=== PATIENT | female | born 1950 | race American Indian/Alaskan Native ===

== ENCOUNTER 2021-11-21 04:47 | Inpatient (IN) | payer MEDICARE, OTHER ==
--- NOTE | 2021-11-21 04:51 | Event Note ---
Date: 11/21/21 Verbal report received from emergency medical services. EMS documentation not available at time of chart dictation Medical screening examination note: 71-year-old female, with an EMS described past medical history of "weak heart", brought to the hospital by emergency medical services with an EMS articulated complaint of shortness of breath. The patient denies physical pain. EMS reports that the patient had wheezing, and was given magnesium, and possibly steroids and nebulizers. The patient denies physical pain. She is awake and al ert, protecting airway and moving 4 extremities. She is found to have JVD. She appears to be mildly anxious Obtain vital signs, EKG, chest x-ray, appropriate laboratory studies, and a detailed history and physical will be performed by myself or the oncoming provider
[2021-11-21 05:11] LABS: Basophils # (Auto) 0.3 K/mm3 (0.0-0.1); Basophils % (Auto) 2.1 % (0.0-1.8); Eosinophils # (Auto) 0.2 K/mm3 (0.0-0.4); Eosinophils % (Auto) 1.3 % (0.0-4.3); Hematocrit 37.3 % (30.3-42.9); Hemoglobin 11.6 gm/dl (10.1-14.3); Lymphocytes # (Auto) 2.7 K/mm3 (1.2-5.4); Lymphocytes % (Auto) 22.6 % (13.4-35.0); Mean Corpuscular HGB Conc 31 % (30-34); Mean Corpuscular Volume 90 fl (79-97); Monocytes % (Auto) 8.1 % (0.0-7.3); Platelet Count 182 K/mm3 (140-440); Red Blood Count 4.14 M/mm3 (3.65-5.03); Red Cell Distribution Width 15.9 % (13.2-15.2)
[2021-11-21 05:22] LABS: INR 0.85 (0.87-1.13)
[2021-11-21 05:27] LABS: Alanine Aminotransferase 8 units/L (7-56); BUN/Creatinine Ratio 22; Blood Urea Nitrogen 24 mg/dL (7-17); Calcium 8.8 mg/dL (8.4-10.2); Hemolysis Index 21
--- NOTE | 2021-11-21 05:37 | XRay Report ---
CHEST 1 VIEW 11/21/2021 5:18 AM INDICATION / CLINICAL INFORMATION: Dyspnea. COMPARISON: None available. FINDINGS: SUPPORT DEVICES: None. HEART / MEDIASTINUM: The cardiac silhouette appears enlarged even for AP technique. LUNGS / PLEURA: Mild reticular interstitial thickening with Negar B-lines most consistent with mild interstitial edema. No significant pleural effusion or evidence for pneumonia. No pneumothorax. ADDITIONAL FINDINGS: None IMPRESSION: 1. Mild diffuse interstitial pulmonary edema. Signer Name: Pop Kelly MD Signed: 11/21/2021 5:33 AM Workstation Name: [employer]
--- NOTE | 2021-11-21 07:17 | Emergency Department Report ---
ED Shortness of Breath HPI - General Chief Complaint: Dyspnea/Respdistress Stated Complaint: DIFFICULTY BREATHING Time Seen by Provider: 11/21/21 06:15 Source: EMS, old records reviewed (No previous medical record for review) Mode of arrival: Stretcher Limitations: No Limitations - History of Present Illness Initial Comments: 71-year-old female with a past medical history of evn-jfsaoyr-[id number] diabetes, hypertension, elevated cholesterol, and a "weak heart" presents to the hospital with complaints of shortness of breath that is progressively worsened over the last 3 to 4 days. Patient woke up from her sleep with significant shortness of breath and chest tightness. As per medical record EMS heard wheezing on their examination initiated Solu-Medrol 125, magnesium 2 g, epinephrine, and nebulizers. Patient reports improvement of symptoms upon arrival. Saturation 93% on 2 L. Patient is a longtime smoker but denies history of asthma or COPD. Last week she was admitted to [facility] x5 days with discharge on November 15 for hypoglycemia. She states she received inpatient cardiac work-up including cardiac cath at that time. She was scheduled to follow-up with the core shaper sides today. She cannot recall any of her medications. No previous medical record available for review. - Related Data Allergies Allergy/AdvReac Type Severity Reaction Status Date / Time lisinopril Allergy Unknown Verified 11/21/21 07:28 ED Review of Systems ROS: Stated complaint: DIFFICULTY BREATHING Other details as noted in HPI Comment: All other systems reviewed and negative ED Past Medical Hx - Social History Smoking Status: Never Smoker ED Physical Exam - General Limitations: No Limitations - Other Other exam information: General: No acute distress Head: Atraumatic Eyes: normal appearance ENT: Moist mucous membranes Neck: Normal appearance, no midline tenderness Chest: Clear to auscultation bilaterally, no wheezes or crackles auscultated on examination, no tachypnea CV: Regular rate and rhythm Abdomen: Soft, normal bowel sounds, nontender, nondistended, no rebound or guarding Back: Normal inspection Extremity: Normal inspection, full range of motion, no calf tenderness or leg edema Neuro: Alert O x 3, no facial asymmetry, speech clear, no gross motor sensory deficit Psych: Appropriate behavior Skin: No rash ED Course Vital Signs 11/21/21 11/21/21 11/21/21 04:52 05:00 05:16 Temperature Pulse Rate 59 L Respiratory 17 Rate Blood Pressure 151/70 Blood Pressure [Left] O2 Sat by Pulse 91 92 90 Oximetry 11/21/21 11/21/21 11/21/21 05:30 05:31 05:46 Temperature 98.1 F Pulse Rate 73 72 79 Respiratory 22 21 Rate Blood Pressure 151/70 158/74 151/70 Blood Pressure [Left] O2 Sat by Pulse 89 100 89 Oximetry 11/21/21 11/21/21 11/21/21 06:00 06:16 07:12 Temperature Pulse Rate 72 65 Respiratory 13 16 Rate Blood Pressure 151/70 151/70 Blood Pressure [Left] O2 Sat by Pulse 91 92 98 Oximetry 11/21/21 09:42 Temperature Pulse Rate 69 Respiratory 16 Rate Blood Pressure Blood Pressure 133/67 [Left] O2 Sat by Pulse 95 Oximetry - Consultations Consultation #1: 11/21/21 08:46 Case discussed with Jd physician bus assistant for [facility] who was able to access [facility] medical records. Patient had a cardiac cath that showed nonobstructive disease and EF of 30 to 35%. Patient was worked up by [facility] and referred to follow-up with Dr. Melton as an outpatient. [facility] will be consulted. Case discussed with Dr. Kassandra king who states that if patient belongs to [facility] then ordered the consult and they will see the patient ED Medical Decision Making - Lab Data Result diagrams: 11/21/21 04:49 11/21/21 04:49 Lab Results 11/21/21 11/21/21 11/21/21 Range/Units 04:49 04:49 04:49 WBC 12.1 H (4.5-11.0) K/mm3 RBC 4.14 (3.65-5.03) M/mm3 Hgb 11.6 (10.1-14.3) gm/dl Hct 37.3 (30.3-42.9) % MCV 90 (79-97) fl MCH 28 (28-32) pg MCHC 31 (30-34) % RDW 15.9 H (13.2-15.2) % Plt Count 182 (140-440) K/mm3 Lymph % (Auto) 22.6 (13.4-35.0) % [place] % (Auto) 8.1 H (0.0-7.3) % Eos % (Auto) 1.3 (0.0-4.3) % Baso % (Auto) 2.1 H (0.0-1.8) % Lymph # (Auto) 2.7 (1.2-5.4) K/mm3 [place] # (Auto) 1.0 H (0.0-0.8) K/mm3 Eos # (Auto) 0.2 (0.0-0.4) K/mm3 Baso # (Auto) 0.3 H (0.0-0.1) K/mm3 Seg Neutrophils % 65.9 (40.0-70.0) % Seg Neutrophils # 8.0 H (1.8-7.7) K/mm3 PT 12.8 (12.2-14.9) Sec. INR 0.85 L (0.87-1.13) ABG pH (7.350-7.450) pH Units ABG pCO2 mm Hg ABG pO2 (80.0-90.0) mm Hg ABG HCO3 (20.0-26.0) mmol/L ABG O2 Saturation (95.0-99.0) % ABG O2 Content (0.0-44) ABG Base Excess (-2.0-3.0) mmol/L ABG Hemoglobin (12.0-16.0) gm/dl ABG Carboxyhemoglobin (0.0-5.0) % ABG Methemoglobin (0.0-1.5) % Oxyhemoglobin (95.0-99.0) % FiO2 % Sodium 143 (137-145) mmol/L Potassium 4.2 (3.6-5.0) mmol/L Chloride 111.4 H (98-107) mmol/L Carbon Dioxide 21 L (22-30) mmol/L Anion Gap 15 mmol/L BUN 24 H (7-17) mg/dL Creatinine 1.1 (0.6-1.2) mg/dL Estimated GFR 49 ml/min BUN/Creatinine Ratio 22 % Glucose 135 H (65-100) mg/dL Calcium 8.8 (8.4-10.2) mg/dL Magnesium 2.60 H (1.7-2.3) mg/dL Total Bilirubin 0.40 (0.1-1.2) mg/dL AST 15 (5-40) units/L ALT 8 (7-56) units/L Alkaline Phosphatase 124 (35-129) units/L Total Creatine Kinase 64 (30-135) units/L Troponin T < 0.010 (0.00-0.029) ng/mL NT-Pro-B Natriuret Pep 4743 H (0-900) pg/mL Total Protein 6.8 (6.3-8.2) g/dL Albumin 4.0 (3.9-5) g/dL Albumin/Globulin Ratio 1.4 % TSH (0.270-4.200) mlU/mL 11/21/21 11/21/21 Range/Units 04:49 06:48 WBC (4.5-11.0) K/mm3 RBC (3.65-5.03) M/mm3 Hgb (10.1-14.3) gm/dl Hct (30.3-42.9) % MCV (79-97) fl MCH (28-32) pg MCHC (30-34) % RDW (13.2-15.2) % Plt Count (140-440) K/mm3 Lymph % (Auto) (13.4-35.0) % [place] % (Auto) (0.0-7.3) % Eos % (Auto) (0.0-4.3) % Baso % (Auto) (0.0-1.8) % Lymph # (Auto) (1.2-5.4) K/mm3 [place] # (Auto) (0.0-0.8) K/mm3 Eos # (Auto) (0.0-0.4) K/mm3 Baso # (Auto) (0.0-0.1) K/mm3 Seg Neutrophils % (40.0-70.0) % Seg Neutrophils # (1.8-7.7) K/mm3 PT (12.2-14.9) Sec. INR (0.87-1.13) ABG pH 7.314 L (7.350-7.450) pH Units ABG pCO2 40.4 mm Hg ABG pO2 57.2 L (80.0-90.0) mm Hg ABG HCO3 20.0 (20.0-26.0) mmol/L ABG O2 Saturation 88.8 L (95.0-99.0) % ABG O2 Content 12.9 (0.0-44) ABG Base Excess -5.7 L (-2.0-3.0) mmol/L ABG Hemoglobin 10.8 L (12.0-16.0) gm/dl ABG Carboxyhemoglobin 4.4 (0.0-5.0) % ABG Methemoglobin 0.4 (0.0-1.5) % Oxyhemoglobin 84.5 L (95.0-99.0) % FiO2 21 % Sodium (137-145) mmol/L Potassium (3.6-5.0) mmol/L Chloride (98-107) mmol/L Carbon Dioxide (22-30) mmol/L Anion Gap mmol/L BUN (7-17) mg/dL Creatinine (0.6-1.2) mg/dL Estimated GFR ml/min BUN/Creatinine Ratio % Glucose (65-100) mg/dL Calcium (8.4-10.2) mg/dL Magnesium (1.7-2.3) mg/dL Total Bilirubin (0.1-1.2) mg/dL AST (5-40) units/L ALT (7-56) units/L Alkaline Phosphatase (35-129) units/L Total Creatine Kinase (30-135) units/L Troponin T (0.00-0.029) ng/mL NT-Pro-B Natriuret Pep (0-900) pg/mL Total Protein (6.3-8.2) g/dL Albumin (3.9-5) g/dL Albumin/Globulin Ratio % TSH 1.300 (0.270-4.200) mlU/mL - EKG Data -: EKG Interpreted by Me (Left bundle branch block) EKG shows normal: sinus rhythm Rate: normal - EKG Data When compared to previous EKG there are: previous EKG unavailable - Radiology Data Radiology results: report reviewed CHEST 1 VIEW 11/21/2021 5:18 AM INDICATION / CLINICAL INFORMATION: Dyspnea. COMPARISON: None available. FINDINGS: SUPPORT DEVICES: None. HEART / MEDIASTINUM: The cardiac silhouette appears enlarged even for AP technique. LUNGS / PLEURA: Mild reticular interstitial thickening with Negar B-lines most consistent with mild interstitial edema. No significant pleural effusion or evidence for pneumonia. No pneumothorax. ADDITIONAL FINDINGS: None IMPRESSION: 1. Mild diffuse interstitial pulmonary edema. - Medical Decision Making 71-year female presents to the hospital shortness of breath. Differential at time of disposition includes CHF versus COPD/reactive airway disease. Patient responded well to treatment for bronchospasm however chest x-ray shows findings of CHF with elevated BNP. EKG reveals a left bundle branch block without previous for comparison. Patient denies chest pain after bronchospasm treatment. Initial troponin negative. Case discussed with hospitalist for admission. ABG on room air requested and pending at time of disposition abg on room air shows acute respiratory failure with hypoxia. Case discussed with cardiology. Patient is a patient of [facility] Lasix 40 mg IV ordered Critical Care Time: Yes Critical care time in (mins) excluding proc time.: 35 Critical care attestation.: If time is entered above; I have spent that time in minutes in the direct care of this critically ill patient, excluding procedure time. Critical Care Time: 35 minutes of critical care time. Patient required multiple reassessments, supplemental oxygenation titrate for acute respiratory failure, ABG interpretation, consultations, IV medications, continuous cardiac monitoring. Patient to be admitted to the hospitalist service for further treatment ED Disposition Clinical Impression: Dyspnea, CHF exacerbation, Acute respiratory failure with hypoxia Disposition: ADMITTED INPATIENT Is pt being admited?: Yes Condition: Stable Time of Disposition: 07:18 (Andree)
[2021-11-21] MEDS ORDERED: ONDANSETRON 4 MG/2 ML INJ IV PRN ×2 (07:22→13:00)
[2021-11-21] MEDS ORDERED: ACETAMINOPHEN 325 MG TAB PO PRN ×2 (07:22→13:00)
[2021-11-21] MEDS ORDERED: MORPHINE 2 MG/1 ML INJ IV PRN (07:23)
[2021-11-21 07:25] LABS: ABG Base Excess -5.7 mmol/L (-2.0-3.0); ABG Methemoglobin 0.4 % (0.0-1.5); ABG Oxygen Saturation 88.8 % (95.0-99.0); ABG PCO2 40.4 mm Hg; ABG PH 7.314 pH Units (7.350-7.450); ABG PO2 57.2 mm Hg (80.0-90.0)
[2021-11-21] MEDS ORDERED: FUROSEMIDE 40 MG/4 ML INJ IV ONE (08:48)
--- NOTE | 2021-11-21 12:27 | History and Physical Report ---
History of Present Illness Date of examination: 11/21/21 Date of admission: 11/21/21 07:22 Chief complaint: I could not breathe History of present illness: Patient is a 71-year-old female with history of type 2 diabetes, hypertension, hyperlipidemia and CHF who presented with acute onset shortness of breath that woke her out of her sleep. She also reports chest pressure and cough. There were no alleviating or worsening factors. She did attempt to use her brothers albuterol inhaler with no improvement. Chest pain resolved while in the ED. She reports compliance with her heart failure medications at home. She quit smoking 1 week ago after being hospitalized for CHF exacerbation. She denies lightheadedness, dizziness, palpitations, and peripheral edema. Chest x-ray was reviewed and showed pulmonary edema. NT proBNP was 4743. Patient was admitted for acute CHF exacerbation and cardiology was consulted. Past History Past Medical History: cancer (Breast), diabetes, heart failure, hypertension Past Surgical History: mastectomy (R) Social history: lives with family, smoking Family history: no significant family history Medications and Allergies Allergies Allergy/AdvReac Type Severity Reaction Status Date / Time lisinopril Allergy Unknown Verified 11/21/21 07:28 Home Medications Medication Instructions Recorded Confirmed Last Taken Type Aspirin [Adult Aspirin] 81 mg PO DAILY 11/21/21 11/21/21 Unknown History AtorvaSTATin [Lipitor] 40 mg PO QHS 11/21/21 11/21/21 Unknown History Glimepiride 1 mg PO DAILY 11/21/21 11/21/21 Unknown History Metformin HCl [metFORMIN] 1,000 mg PO BID 11/21/21 11/21/21 Unknown History Furosemide [Lasix] 20 mg PO QDAY 30 Days #30 tablet 11/23/21 Unknown Rx Losartan [Cozaar] 50 mg PO QDAY 30 Days #30 tablet 11/23/21 Unknown Rx Spironolactone [Aldactone] 25 mg PO QDAY 30 Days #30 tablet 11/23/21 Unknown Rx carvediloL [Coreg] 3.125 mg PO BID 30 Days #60 tablet 11/23/21 Unknown Rx Active Meds: Active Medications Acetaminophen (Acetaminophen 325 Mg Tab) 650 mg PO Q4H PRN PRN Reason: Pain MILD(1-3)/Fever >100.5/SANCHEZ Morphine Sulfate (Morphine 4 Mg/1 Ml Inj) 4 mg IV Q4H PRN PRN Reason: Pain , Severe (7-10) Ondansetron HCl (Ondansetron 4 Mg/2 Ml Inj) 4 mg IV Q8H PRN PRN Reason: Nausea And Vomiting Oxycodone/Acetaminophen (Oxycodone /Acetaminophen 5-325mg Tab) 1 tab PO Q6H PRN PRN Reason: Pain, Moderate (4-6) Sodium Chloride (Sodium Chloride 0.9% 10 Ml Flush Syringe) 10 ml IV BID [facility] Last Admin: 11/21/21 09:34 Dose: 10 ml Sodium Chloride (Sodium Chloride 0.9% 10 Ml Flush Syringe) 10 ml IV PRN PRN PRN Reason: LINE FLUSH Stop: 12/07/21 08:59 Sodium Chloride (Sodium Chloride 0.9% 10 Ml Flush Syringe) 10 ml IV BID [facility] Sodium Chloride (Sodium Chloride 0.9% 10 Ml Flush Syringe) 10 ml IV PRN PRN PRN Reason: LINE FLUSH Review of Systems Constitutional: no weight loss, no weight gain, no fever, no chills, no sweats, no fatigue, no poor appetite, no daytime sleepiness Ears, nose, mouth and throat: deferred Breasts: deferred Cardiovascular: chest pain, shortness of breath, high blood pressure, no palpitations, no rapid/irregular heart beat, no edema, no lightheadedness, no paroxysmal nocturnal dyspnea Respiratory: cough, no cough with sputum, no congestion, no wheezing, no home oxygen Gastrointestinal: no abdominal pain, no nausea, no vomiting, no diarrhea, no change in bowel habits Musculoskeletal: no neck stiffness, no low back pain, no muscle weakness Integumentary: deferred Neurological: no numbness, no tingling, no syncope, no headaches, no loss of vision Endocrine: no polyphagia, no polydipsia, no polyuria, no low blood sugars Exam - Physical Exam Narrative exam: GENERAL: Well-developed well-nourished. In no acute distress. HEENT: NC in place @2LPM NECK: Supple. CHEST/LUNGS: Mild crackles on posterior examination. HEART/CARDIOVASCULAR: RRR. No murmur, rubs or gallops appreciated. ABDOMEN: +BS. NT/ND. SKIN: No rashes noted. NEURO: No focal motor deficit. Follows all commands. MUSCULOSKELETAL: No joint effusion EXTREMITIES: No cyanosis, clubbing or edema. PSYCH: Cooperative. - Constitutional Vitals: Temp Pulse Resp BP Pulse Ox 98.1 F 69 16 133/67 95 11/21/21 05:31 11/21/21 09:42 11/21/21 09:42 11/21/21 09:42 11/21/21 09:42 HEART Score - HEART Score Troponin: Troponin T < 0.010 ng/mL (0.00-0.029) 11/21/21 04:49 Results - Labs CBC & Chem 7: 11/22/21 05:49 11/22/21 05:49 Labs: Laboratory Last Values WBC 12.1 K/mm3 (4.5-11.0) H 11/21/21 04:49 RBC 4.14 M/mm3 (3.65-5.03) 11/21/21 04:49 Hgb 11.6 gm/dl (10.1-14.3) 11/21/21 04:49 Hct 37.3 % (30.3-42.9) 11/21/21 04:49 MCV 90 fl (79-97) 11/21/21 04:49 MCH 28 pg (28-32) 11/21/21 04:49 MCHC 31 % (30-34) 11/21/21 04:49 RDW 15.9 % (13.2-15.2) H 11/21/21 04:49 Plt Count 182 K/mm3 (140-440) 11/21/21 04:49 Lymph % (Auto) 22.6 % (13.4-35.0) 11/21/21 04:49 [place] % (Auto) 8.1 % (0.0-7.3) H 11/21/21 04:49 Eos % (Auto) 1.3 % (0.0-4.3) 11/21/21 04:49 Baso % (Auto) 2.1 % (0.0-1.8) H 11/21/21 04:49 Lymph # (Auto) 2.7 K/mm3 (1.2-5.4) 11/21/21 04:49 [place] # (Auto) 1.0 K/mm3 (0.0-0.8) H 11/21/21 04:49 Eos # (Auto) 0.2 K/mm3 (0.0-0.4) 11/21/21 04:49 Baso # (Auto) 0.3 K/mm3 (0.0-0.1) H 11/21/21 04:49 Seg Neutrophils % 65.9 % (40.0-70.0) 11/21/21 04:49 Seg Neutrophils # 8.0 K/mm3 (1.8-7.7) H 11/21/21 04:49 PT 12.8 Sec. (12.2-14.9) 11/21/21 04:49 INR 0.85 (0.87-1.13) L 11/21/21 04:49 ABG pH 7.314 pH Units (7.350-7.450) L 11/21/21 06:48 ABG pCO2 40.4 mm Hg 11/21/21 06:48 ABG pO2 57.2 mm Hg (80.0-90.0) L 11/21/21 06:48 ABG HCO3 20.0 mmol/L (20.0-26.0) 11/21/21 06:48 ABG O2 Saturation 88.8 % (95.0-99.0) L 11/21/21 06:48 ABG O2 Content 12.9 (0.0-44) 11/21/21 06:48 ABG Base Excess -5.7 mmol/L (-2.0-3.0) L 11/21/21 06:48 ABG Hemoglobin 10.8 gm/dl (12.0-16.0) L 11/21/21 06:48 ABG Carboxyhemoglobin 4.4 % (0.0-5.0) 11/21/21 06:48 ABG Methemoglobin 0.4 % (0.0-1.5) 11/21/21 06:48 Oxyhemoglobin 84.5 % (95.0-99.0) L 11/21/21 06:48 FiO2 21 % 11/21/21 06:48 Sodium 143 mmol/L (137-145) 11/21/21 04:49 Potassium 4.2 mmol/L (3.6-5.0) 11/21/21 04:49 Chloride 111.4 mmol/L (98-107) H 11/21/21 04:49 Carbon Dioxide 21 mmol/L (22-30) L 11/21/21 04:49 Anion Gap 15 mmol/L 11/21/21 04:49 BUN 24 mg/dL (7-17) H 11/21/21 04:49 Creatinine 1.1 mg/dL (0.6-1.2) 11/21/21 04:49 Estimated GFR 49 ml/min 11/21/21 04:49 BUN/Creatinine Ratio 22 % 11/21/21 04:49 Glucose 135 mg/dL (65-100) H 11/21/21 04:49 Calcium 8.8 mg/dL (8.4-10.2) 11/21/21 04:49 Magnesium 2.60 mg/dL (1.7-2.3) H 11/21/21 04:49 Total Bilirubin 0.40 mg/dL (0.1-1.2) 11/21/21 04:49 AST 15 units/L (5-40) 11/21/21 04:49 ALT 8 units/L (7-56) 11/21/21 04:49 Alkaline Phosphatase 124 units/L (35-129) 11/21/21 04:49 Total Creatine Kinase 64 units/L (30-135) 11/21/21 04:49 Troponin T < 0.010 ng/mL (0.00-0.029) 11/21/21 04:49 NT-Pro-B Natriuret Pep 4743 pg/mL (0-900) H 11/21/21 04:49 Total Protein 6.8 g/dL (6.3-8.2) 11/21/21 04:49 Albumin 4.0 g/dL (3.9-5) 11/21/21 04:49 Albumin/Globulin Ratio 1.4 % 11/21/21 04:49 TSH 1.300 mlU/mL (0.270-4.200) 11/21/21 04:49 - Imaging and Cardiology Chest x-ray: report reviewed, image reviewed Assessment and Plan Assessment and plan: #Acute on chronic systolic heart failure #Nonischemic cardiomyopathy #Takotsubo syndrome -IV Lasix, Aldactone, Coreg -patient not on ACEi/ARB due to angioedema in the past -Cardiology consulted, assistance appreciated #Hyperlipidemia -Continue statin #Hypertension -Continue goal-directed medical therapy for CHF #Type 2 diabetes mellitus -Patient taking metformin and glimepiride at home -We will start sliding scale insulin and accuchecks while in patient #tobacco dependence #Tobacco cessation counseling Smoking cessation counseling, supportive care, behavior change counseling, +15 minutes. -nicotine patch ordered #Advanced care planning -Disease education conducted, care plan discussed, diagnoses discussed, prognosis discussed, and patient acknowledges understanding with care plan -Time: +30 min Advance Directives: No VTE prophylaxis?: Chemical Plan of care discussed with patient/family: Yes
[2021-11-21] MEDS ORDERED: MORPHINE 4 MG/1 ML INJ IV PRN (13:00)
[2021-11-21] MEDS ORDERED: oxyCODONE /ACETAMINOPHEN 5-325MG TAB PO PRN (13:00)
--- NOTE | 2021-11-21 13:10 | Consultation ---
History of Present Illness Consult date: 11/21/21 Consult reason: shortness of breath History of present illness: This patient is a 71-year-old woman who was just hospitalized a week ago at [facility] for acute coronary syndrome. She went extensive cardiac evaluation including echocardiogram and cardiac catheterization. Cardiac catheterization revealed angiographically normal coronary arteries, and she was given a diagnosis of Takotsubo syndrome. She was discharged on appropriate medical therapy. She presents to this hospital now with shortness of breath which suddenly woke her up from sleep, there was no exertional chest pain, no palpitations and no syncope. Work-up so far in the hospital: EKG was a sinus rhythm with left bundle branch block. Chest x-ray revealed a moderate to severe cardiomegaly, with very mild bilateral interstitial edema. Past History Past Medical History: heart failure Medications and Allergies Allergies Allergy/AdvReac Type Severity Reaction Status Date / Time lisinopril Allergy Unknown Verified 11/21/21 07:28 Active Meds: Active Medications Acetaminophen (Acetaminophen 325 Mg Tab) 650 mg PO Q4H PRN PRN Reason: Pain MILD(1-3)/Fever >100.5/SANCHEZ Morphine Sulfate (Morphine 4 Mg/1 Ml Inj) 4 mg IV Q4H PRN PRN Reason: Pain , Severe (7-10) Ondansetron HCl (Ondansetron 4 Mg/2 Ml Inj) 4 mg IV Q8H PRN PRN Reason: Nausea And Vomiting Oxycodone/Acetaminophen (Oxycodone /Acetaminophen 5-325mg Tab) 1 tab PO Q6H PRN PRN Reason: Pain, Moderate (4-6) Sodium Chloride (Sodium Chloride 0.9% 10 Ml Flush Syringe) 10 ml IV BID [facility] Last Admin: 11/21/21 09:34 Dose: 10 ml Sodium Chloride (Sodium Chloride 0.9% 10 Ml Flush Syringe) 10 ml IV PRN PRN PRN Reason: LINE FLUSH Stop: 12/07/21 08:59 Review of Systems Cardiovascular: chest pain, orthopnea, shortness of breath, no palpitations, no rapid/irregular heart beat, no edema, no syncope, no lightheadedness Physical Examination Vital Signs Pulse Ox 91 11/21/21 04:52 General appearance: no acute distress HEENT: Positive: PERRL Neck: Positive: neck supple Cardiac: Positive: Reg Rate and Rhythm Lungs: Positive: Decreased Breath Sounds Neuro: Positive: Grossly Intact Abdomen: Positive: Soft Female genitourinary: deferred Skin: Positive: Clear Extremities: Absent: edema Results 11/21/21 04:49 11/21/21 04:49 Cardiac Enzymes 11/21/21 Range/Units 04:49 AST 15 (5-40) units/L Coagulation 11/21/21 Range/Units 04:49 PT 12.8 (12.2-14.9) Sec. INR 0.85 L (0.87-1.13) CBC 11/21/21 Range/Units 04:49 WBC 12.1 H (4.5-11.0) K/mm3 RBC 4.14 (3.65-5.03) M/mm3 Hgb 11.6 (10.1-14.3) gm/dl Hct 37.3 (30.3-42.9) % Plt Count 182 (140-440) K/mm3 Lymph # (Auto) 2.7 (1.2-5.4) K/mm3 [place] # (Auto) 1.0 H (0.0-0.8) K/mm3 Eos # (Auto) 0.2 (0.0-0.4) K/mm3 Baso # (Auto) 0.3 H (0.0-0.1) K/mm3 Comprehensive Metabolic Panel 11/21/21 Range/Units 04:49 Sodium 143 (137-145) mmol/L Potassium 4.2 (3.6-5.0) mmol/L Chloride 111.4 H (98-107) mmol/L Carbon Dioxide 21 L (22-30) mmol/L BUN 24 H (7-17) mg/dL Creatinine 1.1 (0.6-1.2) mg/dL Glucose 135 H (65-100) mg/dL Calcium 8.8 (8.4-10.2) mg/dL AST 15 (5-40) units/L ALT 8 (7-56) units/L Alkaline Phosphatase 124 (35-129) units/L Total Protein 6.8 (6.3-8.2) g/dL Albumin 4.0 (3.9-5) g/dL EKG interpretations - Telemetry EKG Rhythm: Sinus Rhythm (With left bundle branch block) Assessment and Plan - Patient Problems (1) Acute systolic heart failure Current Visit: Yes Status: Acute Plan to address problem: Patient has a recent diagnosis of nonischemic cardiomyopathy, Takotsubo syndrome, now admitted with acute shortness of breath with exacerbation of systolic heart failure. She states that she is compliant with her guideline directed medical therapy. Recommend IV diuretics, optimal medical therapy for underlying nonischemic cardiomyopathy.
[2021-11-21] MEDS: carvediloL 3.125 MG TAB PO SCH ×2 (16:41→22:30)
[2021-11-21] MEDS: LOSARTAN 50 MG TAB PO SCH (16:41)
[2021-11-21] MEDS: SPIRONOLACTONE 25 MG TAB PO SCH (17:44)
[2021-11-21] MEDS: FUROSEMIDE 40 MG/4 ML INJ IV SCH (18:47)
[2021-11-22] MEDS: FUROSEMIDE 40 MG/4 ML INJ IV SCH ×2 (06:08→18:48)
[2021-11-22 06:55] LABS: Basophils % (Auto) 0.2 % (0.0-1.8); Hemoglobin 10.9 gm/dl (10.1-14.3); Lymphocytes % (Auto) 10.7 % (13.4-35.0); Mean Corpuscular HGB Conc 33 % (30-34); Mean Corpuscular Volume 87 fl (79-97); Monocytes # (Auto) 0.7 K/mm3 (0.0-0.8); Monocytes % (Auto) 7.7 % (0.0-7.3); Platelet Count 181 K/mm3 (140-440); Red Cell Distribution Width 15.3 % (13.2-15.2)
[2021-11-22 07:14] LABS: Albumin 3.9 g/dL (3.9-5); Calcium 9.1 mg/dL (8.4-10.2)
[2021-11-22] MEDS: ASPIRIN EC 81 MG TAB PO SCH (09:18)
[2021-11-22] MEDS: NICOTINE 14 MG/24 HR PATCH TD SCH (09:18)
[2021-11-22] MEDS: carvediloL 3.125 MG TAB PO SCH ×2 (09:18→21:05)
[2021-11-22] MEDS: SPIRONOLACTONE 25 MG TAB PO SCH (09:18)
[2021-11-22] MEDS: LOSARTAN 50 MG TAB PO SCH (09:18)
--- NOTE | 2021-11-22 15:00 | Progress Note ---
Assessment and Plan - Patient Problems (1) Acute systolic heart failure Current Visit: Yes Status: Acute Plan to address problem: Patient has a recent diagnosis of nonischemic cardiomyopathy, Takotsubo syndrome, now admitted with acute shortness of breath with exacerbation of systolic heart failure. She states that she is compliant with her guideline directed medical therapy. Continue optimal medical therapy as previously outlined. Subjective Date of service: 11/22/21 Principal diagnosis: Cardiomyopathy, systolic heart failure Interval history: Patient is comfortable, no acute distress, no new cardiac events reported. On threat monitoring analyst, she has a sinus bradycardia at 55. Objective Vital Signs Temp Pulse Resp BP BP Pulse Ox 11/22/21 11:45 97.5 F L 47 L 22 111/54 100 11/22/21 09:00 98 11/22/21 05:30 97.7 F 51 L 18 135/67 100 11/21/21 22:30 51 L 140/64 11/21/21 22:15 98.5 F 11/21/21 22:12 51 L 20 140/64 99 11/21/21 22:00 99 11/21/21 21:26 20 98 11/21/21 20:01 61 20 142/65 97 11/21/21 19:30 98.2 F 73 18 145/46 99 11/21/21 18:01 58 L 18 176/70 98 11/21/21 16:41 134/65 11/21/21 16:40 132/62 - Physical Examination General: No Apparent Distress HEENT: Positive: PERRL Neck: Positive: neck supple Cardiac: Positive: Regular Rhythm Lungs: Positive: Decreased Breath Sounds Neuro: Positive: Grossly Intact Abdomen: Positive: Soft Skin: Positive: Clear Extremities: Absent: edema - Labs and Meds Cardiac Enzymes 11/22/21 Range/Units 05:49 AST 12 (5-40) units/L CBC 11/22/21 Range/Units 05:49 WBC 9.3 (4.5-11.0) K/mm3 RBC 3.80 (3.65-5.03) M/mm3 Hgb 10.9 (10.1-14.3) gm/dl Hct 33.0 (30.3-42.9) % Plt Count 181 (140-440) K/mm3 Lymph # (Auto) 1.0 L (1.2-5.4) K/mm3 [place] # (Auto) 0.7 (0.0-0.8) K/mm3 Eos # (Auto) 0.0 (0.0-0.4) K/mm3 Baso # (Auto) 0.0 (0.0-0.1) K/mm3 Comprehensive Metabolic Panel 11/22/21 Range/Units 05:49 Sodium 139 (137-145) mmol/L Potassium 4.3 (3.6-5.0) mmol/L Chloride 103.0 (98-107) mmol/L Carbon Dioxide 23 (22-30) mmol/L BUN 33 H (7-17) mg/dL Creatinine 1.2 (0.6-1.2) mg/dL Glucose 191 H (65-100) mg/dL Calcium 9.1 (8.4-10.2) mg/dL AST 12 (5-40) units/L ALT 7 (7-56) units/L Alkaline Phosphatase 110 (35-129) units/L Total Protein 6.6 (6.3-8.2) g/dL Albumin 3.9 (3.9-5) g/dL
--- NOTE | 2021-11-22 15:03 | Progress Note ---
Assessment and Plan Assessment and plan: #Acute on chronic systolic heart failure #Nonischemic cardiomyopathy #Takotsubo syndrome -IV Lasix, Aldactone, Coreg -patient not on ACEi/ARB due to angioedema in the past -Cardiology consulted, assistance appreciated #Acute hypoxic respiratory failure #Pulmonary edema -Likely secondary to CHF exacerbation -Patient currently on 2 L nasal cannula, will wean as tolerated -Continue treatment as above #Hyperlipidemia -Continue statin #Hypertension -Continue goal-directed medical therapy for CHF #Type 2 diabetes mellitus -Patient taking metformin and glimepiride at home -We will start sliding scale insulin and accuchecks while in patient #tobacco dependence #Tobacco cessation counseling Smoking cessation counseling, supportive care, behavior change counseling, +15 minutes. -nicotine patch ordered #Advanced care planning -Disease education conducted, care plan discussed, diagnoses discussed, prognosis discussed, and patient acknowledges understanding with care plan -Time: +30 min History Interval history: No acute events overnight. Patient reports improvement in shortness of breath and still has some chest tightness. We discussed the importance of salt and fluid restriction. Patient voiced understanding we will continue with current care plan. Hospitalist Physical - Physical exam Narrative exam: GENERAL: Well-developed well-nourished. In no acute distress. HEENT: NC in place @2LPM NECK: Supple. CHEST/LUNGS: Mild crackles on posterior examination. HEART/CARDIOVASCULAR: RRR. No murmur, rubs or gallops appreciated. ABDOMEN: +BS. NT/ND. SKIN: No rashes noted. NEURO: No focal motor deficit. Follows all commands. MUSCULOSKELETAL: No joint effusion EXTREMITIES: No cyanosis, clubbing or edema. PSYCH: Cooperative. - Constitutional Vitals: Temp Pulse Resp BP Pulse Ox 97.5 F L 47 L 22 111/54 100 11/22/21 11:45 11/22/21 11:45 11/22/21 11:45 11/22/21 11:45 11/22/21 11:45 General appearance: Present: no acute distress HEART Score - HEART Score Troponin: Troponin T < 0.010 ng/mL (0.00-0.029) 11/21/21 04:49 Results - Labs CBC & Chem 7: 11/22/21 05:49 11/22/21 05:49 Labs: Laboratory Last Values WBC 9.3 K/mm3 (4.5-11.0) 11/22/21 05:49 RBC 3.80 M/mm3 (3.65-5.03) 11/22/21 05:49 Hgb 10.9 gm/dl (10.1-14.3) 11/22/21 05:49 Hct 33.0 % (30.3-42.9) 11/22/21 05:49 MCV 87 fl (79-97) 11/22/21 05:49 MCH 29 pg (28-32) 11/22/21 05:49 MCHC 33 % (30-34) 11/22/21 05:49 RDW 15.3 % (13.2-15.2) H 11/22/21 05:49 Plt Count 181 K/mm3 (140-440) 11/22/21 05:49 Lymph % (Auto) 10.7 % (13.4-35.0) L 11/22/21 05:49 [place] % (Auto) 7.7 % (0.0-7.3) H 11/22/21 05:49 Eos % (Auto) 0.0 % (0.0-4.3) 11/22/21 05:49 Baso % (Auto) 0.2 % (0.0-1.8) 11/22/21 05:49 Lymph # (Auto) 1.0 K/mm3 (1.2-5.4) L 11/22/21 05:49 [place] # (Auto) 0.7 K/mm3 (0.0-0.8) 11/22/21 05:49 Eos # (Auto) 0.0 K/mm3 (0.0-0.4) 11/22/21 05:49 Baso # (Auto) 0.0 K/mm3 (0.0-0.1) 11/22/21 05:49 Seg Neutrophils % 81.4 % (40.0-70.0) H 11/22/21 05:49 Seg Neutrophils # 7.6 K/mm3 (1.8-7.7) 11/22/21 05:49 PT 12.8 Sec. (12.2-14.9) 11/21/21 04:49 INR 0.85 (0.87-1.13) L 11/21/21 04:49 ABG pH 7.314 pH Units (7.350-7.450) L 11/21/21 06:48 ABG pCO2 40.4 mm Hg 11/21/21 06:48 ABG pO2 57.2 mm Hg (80.0-90.0) L 11/21/21 06:48 ABG HCO3 20.0 mmol/L (20.0-26.0) 11/21/21 06:48 ABG O2 Saturation 88.8 % (95.0-99.0) L 11/21/21 06:48 ABG O2 Content 12.9 (0.0-44) 11/21/21 06:48 ABG Base Excess -5.7 mmol/L (-2.0-3.0) L 11/21/21 06:48 ABG Hemoglobin 10.8 gm/dl (12.0-16.0) L 11/21/21 06:48 ABG Carboxyhemoglobin 4.4 % (0.0-5.0) 11/21/21 06:48 ABG Methemoglobin 0.4 % (0.0-1.5) 11/21/21 06:48 Oxyhemoglobin 84.5 % (95.0-99.0) L 11/21/21 06:48 FiO2 21 % 11/21/21 06:48 Sodium 139 mmol/L (137-145) 11/22/21 05:49 Potassium 4.3 mmol/L (3.6-5.0) 11/22/21 05:49 Chloride 103.0 mmol/L (98-107) 11/22/21 05:49 Carbon Dioxide 23 mmol/L (22-30) 11/22/21 05:49 Anion Gap 17 mmol/L 11/22/21 05:49 BUN 33 mg/dL (7-17) H 11/22/21 05:49 Creatinine 1.2 mg/dL (0.6-1.2) 11/22/21 05:49 Estimated GFR 54 ml/min 11/22/21 05:49 BUN/Creatinine Ratio 28 % 11/22/21 05:49 Glucose 191 mg/dL (65-100) H 11/22/21 05:49 Calcium 9.1 mg/dL (8.4-10.2) 11/22/21 05:49 Magnesium 2.60 mg/dL (1.7-2.3) H 11/21/21 04:49 Total Bilirubin 0.40 mg/dL (0.1-1.2) 11/22/21 05:49 AST 12 units/L (5-40) 11/22/21 05:49 ALT 7 units/L (7-56) 11/22/21 05:49 Alkaline Phosphatase 110 units/L (35-129) 11/22/21 05:49 Total Creatine Kinase 64 units/L (30-135) 11/21/21 04:49 Troponin T < 0.010 ng/mL (0.00-0.029) 11/21/21 04:49 NT-Pro-B Natriuret Pep 4743 pg/mL (0-900) H 11/21/21 04:49 Total Protein 6.6 g/dL (6.3-8.2) 11/22/21 05:49 Albumin 3.9 g/dL (3.9-5) 11/22/21 05:49 Albumin/Globulin Ratio 1.4 % 11/22/21 05:49 TSH 1.300 mlU/mL (0.270-4.200) 11/21/21 04:49 Singh/IV: Voiding Method Toilet Active Medications - Current Medications Current Medications: Generic Name Dose Route Start Last Admin Trade Name Freq PRN Reason Stop Dose Admin Acetaminophen 650 mg 11/21/21 13:00 Acetaminophen 325 Mg Tab PO Q4H PRN Pain MILD(1-3)/Fever >100.5/SANCHEZ Aspirin 81 mg 11/22/21 10:00 11/22/21 09:18 Aspirin Ec 81 Mg Tab PO 81 mg QDAY EFRA Administration Atorvastatin Calcium 40 mg 11/22/21 22:00 Atorvastatin 40 Mg Tab PO QHS EFRA Carvedilol 3.125 mg 11/21/21 14:00 11/22/21 09:18 Carvedilol 3.125 Mg Tab PO 3.125 mg BID EFRA Administration Furosemide 40 mg 11/21/21 18:00 11/22/21 06:08 Furosemide 40 Mg/4 Ml Inj IV 40 mg 0600,1800 EFRA Administration Losartan Potassium 50 mg 11/21/21 14:00 11/22/21 09:18 Losartan 50 Mg Tab PO 50 mg QDAY EFRA Administration Morphine Sulfate 4 mg 11/21/21 13:00 Morphine 4 Mg/1 Ml Inj IV Q4H PRN Pain , Severe (7-10) Nicotine 14 mg 11/22/21 08:00 11/22/21 09:18 Nicotine 14 Mg/24 Hr Patch TD 14 mg QDAY EFRA Administration Ondansetron HCl 4 mg 11/21/21 13:00 Ondansetron 4 Mg/2 Ml Inj IV Q8H PRN Nausea And Vomiting Oxycodone/Acetaminophen 1 tab 11/21/21 13:00 Oxycodone /Acetaminophen 5-325mg Tab PO Q6H PRN Pain, Moderate (4-6) Sodium Chloride 10 ml 11/21/21 10:00 11/22/21 09:19 Sodium Chloride 0.9% 10 Ml Flush Syringe IV 10 ml BID EFRA Administration Sodium Chloride 10 ml 11/21/21 09:00 Sodium Chloride 0.9% 10 Ml Flush Syringe IV 12/07/21 08:59 PRN PRN LINE FLUSH Spironolactone 25 mg 11/21/21 14:00 11/22/21 09:18 Spironolactone 25 Mg Tab PO 25 mg QDAY EFRA Administration
[2021-11-23] MEDS: FUROSEMIDE 40 MG/4 ML INJ IV SCH (06:26)
[2021-11-23] MEDS: ASPIRIN EC 81 MG TAB PO SCH (09:01)
[2021-11-23] MEDS: NICOTINE 14 MG/24 HR PATCH TD SCH (09:01)
[2021-11-23] MEDS: LOSARTAN 50 MG TAB PO SCH (09:59)
[2021-11-23] MEDS: SPIRONOLACTONE 25 MG TAB PO SCH (10:00)
[2021-11-23] MEDS: carvediloL 3.125 MG TAB PO SCH (10:06)
[2021-11-23 14:07] VITALS: BP 125/64
--- NOTE | 2021-11-23 14:35 | Discharge Summary ---
Providers - Providers Date of Admission: 11/21/21 07:22 Date of discharge: 11/23/21 Attending physician: JAY MCCARTNEY MD 11/21/21 09:12 Consult to Physician [CONS] Urgent Comment: Consulting Provider: BANDAR HOLLINGSWORTH Physician Instructions: Reason For Exam: cp, sob, chf Primary care physician: JEWELRY INSPECTOR Hospitalization Reason for admission: CHF exacerbation, respiratory failure Condition: Stable Hospital course: Patient is a 71-year-old female with history of systolic heart failure, breast cancer status postmastectomy, hypertension who presented with acute shortness of breath. She was found to be in CHF exacerbation and started on IV diuretics. Cardiology was consulted. Patient also in hypoxic respiratory failure requiring supplemental O2. She was weaned off of O2 to room air prior to discharge. Once patient clinically improved, she was discharged home with instructions to follow-up with cardiology. Disposition: 01 HOME / SELF CARE / HOMELESS Final Discharge Diagnosis (Prints w/discharge instructions): #Acute on chronic systolic heart failure. #Nonischemic cardiomyopathy. #Takotsubo syndrome. #Acute hypoxic respiratory failure. #Pulmonary edema. #Hyperlipidemia. #Hypertension. #Type 2 diabetes mellitus. #tobacco dependence Time spent for discharge: 30 minutes Core Measure Documentation - Palliative Care Palliative Care/ Comfort Measures: Not Applicable - Core Measures Any of the following diagnoses?: heart failure - Heart Failure Discharge Requirements BRANDEN/ARB for LVSD if EF <40%: No Reason for no BRANDEN/ARB: Allergy or sensitivity Beta ana at discharge: Yes Exam - Constitutional Vitals: Temp Pulse Resp BP Pulse Ox 98.0 F 55 L 18 125/64 98 11/23/21 12:17 11/23/21 12:17 11/23/21 12:17 11/23/21 12:17 11/23/21 12:17 Plan Care Plan Goals: Make sure to follow up with a Asp Developer after discharge. You are welcome to follow with Dr. Hollingsworth who saw you in the hospital. Please restrict the amount of salt and fluids you consume. Limit fluid intake to less than 1.5L per day. Follow up with: BANDAR HOLLINGSWORTH MD [Staff Physician] - 7 Days PRIMARY CARE, [Primary Care Provider] - 3-5 Days Prescriptions: Spironolactone [Aldactone] 25 mg PO QDAY 30 Days #30 tablet carvediloL [Coreg] 3.125 mg PO BID 30 Days #60 tablet Losartan [Cozaar] 50 mg PO QDAY 30 Days #30 tablet Furosemide [Lasix] 20 mg PO QDAY 30 Days #30 tablet
--- NOTE | 2021-11-24 12:13 | Electrocardiograph Report ---
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
== END 2021-11-23 16:33 | disposition home or self-care (01) | DRG 291 ==
LOC: ED 04:47 → 4A 07:22 → 3A 14:37
PROVIDERS: ADMIT Student in an Organized Health Care Education/Training Program; ATTEND Student in an Organized Health Care Education/Training Program
PROC: 4A033R1 Measurement of Arterial Saturation, Peripheral, Percutaneous Approach (ICD-10-PCS; principal; 2021-11-21)
DX: I11.0 Hypertensive heart disease with heart failure (principal); I50.23 Acute on chronic systolic (congestive) heart failure; J96.01 Acute respiratory failure with hypoxia; I42.8 Other cardiomyopathies; E11.9 Type 2 diabetes mellitus without complications; E78.00 Pure hypercholesterolemia, unspecified; E78.5 Hyperlipidemia, unspecified
CPT/HCPCS: 36415; 71045; 80053; 82550; 82803; 82962; 83735; 83880; 84443; 84484; 85025; 85610; 93005; 94760; 96374; 96376; 99291; G0378; J1940